=== PATIENT | male | born 1945 | race Caucasian/White ===

== ENCOUNTER 2023-10-10 07:45 | Inpatient (IN) ==
[2023-10-10] MEDS ORDERED: IOPAMIDOL 100 ML BOTTLE IV ONE (07:46)
[2023-10-10 08:45] LABS: Basophils # (Auto) 0.02 K/mcL (0.00-0.30); Basophils % (Auto) 0.2 % (0.0-2.0); Eosinophils # (Auto) 0.05 K/mcL (0.00-0.70); Eosinophils % (Auto) 0.6 % (0.0-7.0); Hemoglobin 11.4 g/dL (13.7-17.5); Lymphocytes # (Auto) 0.96 K/mcL (1.50-4.80); Lymphocytes % (Auto) 11.4 % (15.5-49.0); Mean Cell Volume 84.5 fL (80.0-100.0); Mean Corpuscular HGB Conc 32.6 g/dL (31.0-36.0); Mean Platelet Volume 8.7 fL (8.8-12.5); Monocytes # (Auto) 0.95 K/mcL (0.10-0.90); Monocytes % (Auto) 11.3 % (1.0-12.0); Neutrophils % (Auto) 75.9 % (38.0-78.0); Platelet Count 334 K/mcL (140-440); RBC 4.14 M/mcL (4.63-6.08); WBC 8.4 K/mcL (4.5-11.0)
[2023-10-10 08:52] LABS: POC Calcium, Ionized 1.31 (1.16-1.32); POC Creatinine 0.9 (0.6-1.2); POC Potassium 4.3 (3.3-5.1)
[2023-10-10 08:59] LABS: ALT/SGPT 15 U/L (<40); AST/SGOT 77 U/L (<40); Albumin 3.4 gm/dL (3.2-5.2); Albumin/Globulin Ratio 0.8 (1.0-2.3); Alkaline Phosphatase 68 U/L (39-117); Bilirubin,Total 0.4 mg/dL (0.1-1.0); Blood Urea Nitrogen 23 mg/dL (8-23); Calcium 9.9 mg/dL (8.6-10.4); Carbon Dioxide 27 mmol/L (22-30); Chloride 96 mmol/L (96-108); Globulin 4.5 gm/dL (2.2-3.7); Glomerular Filtration Rate 82; Glucose 138 mg/dL (70-105)
[2023-10-10] MEDS ORDERED: morphine 4 MG/ML VIAL IV ONE ×3 (10:11→14:06)
[2023-10-10] MEDS ORDERED: 0.9 % SODIUM CHLORIDE 500 ML IV ONE (11:16)
[2023-10-10] MEDS ORDERED: ALBUTEROL SULFATE 60 PUFF INHALER INH PRN (11:20)
[2023-10-10] MEDS ORDERED: CYCLOBENZAPRINE 10 MG TABLET PO PRN (11:33)
[2023-10-10] MEDS ORDERED: IPRATROPIUM/ALBUTEROL 3 ML AMPUL.NEB NEB PRN (14:32)
[2023-10-10] MEDS ORDERED: oxyCODONE IR 5 MG TABLET PO PRN (14:32)
[2023-10-10] MEDS ORDERED: DEXTROSE 31 GM ORAL.SUSP PO PRN (14:32)
[2023-10-10] MEDS ORDERED: ONDANSETRON 4 MG/2 ML VIAL IV PRN (14:32)
[2023-10-10] MEDS ORDERED: DEXTROSE 50% 50 ML VIAL IV PRN (14:32)
[2023-10-10] MEDS ORDERED: morphine 4 MG/ML VIAL IV PRN (14:32)
[2023-10-10] MEDS ORDERED: hydrALAZINE 20 MG/ML VIAL IV PRN (14:32)
[2023-10-10] MEDS ORDERED: DEXTROSE 5%-LR 1,000 ML IV SCH (14:32)
[2023-10-10] MEDS ORDERED: ENALAPRILAT 1.25 MG/ML VIAL IV PRN (14:32)
[2023-10-10] MEDS ORDERED: traZODone HCL 50 MG TABLET PO PRN (14:32)
[2023-10-10] MEDS: INSULIN LISPRO 1 UNIT/0.01 ML UNIT SQ SCH ×3 (15:15→23:51)
[2023-10-10] MEDS: 0.9 % SODIUM CHLORIDE 10 ML SYRINGE IV SCH ×2 (15:17→21:10)
[2023-10-10 15:58] LABS: Amylase 183 U/L (28-100); INR 1.1 (0.9-1.1); Partial Thromboplastin Time 27.4 sec (20.0-37.0); Prothrombin Time 14.9 sec (11.9-14.5); Uric Acid 11.5 mg/dL (2.5-8.0)
[2023-10-10 17:49] LABS: Amylase,Pleural Fluid 59 U/L; Glucose,Pleural Fluid 125 mg/dL
[2023-10-10 17:50] LABS: LDH,Pleural Fluid 911 U/L (<122)
[2023-10-10] MEDS: ACETAMINOPHEN 325 MG TABLET PO PRN (19:00)
[2023-10-10 19:22] LABS: Appearance,Pleural Fluid Hazy; Color,Pleural Fluid Yellow; Lymphocytes,Pleural Fluid 27 %; Mesothelial,Pleural Fluid 6 %; Monocytes,Pleural Fluid 9 %; Neutrophils,Pleural Fluid 1 %; Nucleated Cells,Pleural Fld 864 /cumm; Other Cells,Pleural Cells 57 %; RBC,Pleural Fluid <50,000 /cumm
[2023-10-10 20:04] LABS: Lactate Dehydrogenase 1730 U/L (135-225)
[2023-10-10] MEDS ORDERED: ATORVASTATIN 40 MG TABLET PO SCH (21:00)
[2023-10-10] MEDS ORDERED: DOXYCYCLINE HYCLATE 100 MG TABLET.ORL PO SCH (21:00)
[2023-10-10] MEDS: traZODone HCL 50 MG TABLET PO SCH (21:10)
[2023-10-10] MEDS: GABAPENTIN 300 MG CAPSULE PO SCH (21:10)
[2023-10-10] MEDS: METOPROLOL TARTRATE 50 MG TABLET PO SCH (21:10)
[2023-10-10] MEDS: SENNOSIDES 1 TABLET PO SCH (21:10)
[2023-10-10] MEDS: amLODIPine 5 MG TABLET PO SCH (21:10)
[2023-10-10] MEDS: DOCUSATE SODIUM 100 MG CAPSULE PO SCH (21:10)
[2023-10-11] MEDS: ACETAMINOPHEN 325 MG TABLET PO PRN (02:26)
[2023-10-11] MEDS: 0.9 % SODIUM CHLORIDE 10 ML SYRINGE IV SCH ×3 (05:31→20:54)
[2023-10-11] MEDS: INSULIN LISPRO 1 UNIT/0.01 ML UNIT SQ SCH ×4 (05:33→23:31)
[2023-10-11 06:48] LABS: Basophils # (Auto) 0.02 K/mcL (0.00-0.30); Basophils % (Auto) 0.3 % (0.0-2.0); Eosinophils # (Auto) 0.05 K/mcL (0.00-0.70); Eosinophils % (Auto) 0.8 % (0.0-7.0); Hematocrit 33.3 % (40.1-51.0); Hemoglobin 10.9 g/dL (13.7-17.5); Lymphocytes # (Auto) 0.72 K/mcL (1.50-4.80); Lymphocytes % (Auto) 11.3 % (15.5-49.0); Mean Cell Volume 84.7 fL (80.0-100.0); Mean Corpuscular HGB Conc 32.7 g/dL (31.0-36.0); Mean Platelet Volume 8.9 fL (8.8-12.5); Monocytes # (Auto) 0.79 K/mcL (0.10-0.90); Monocytes % (Auto) 12.4 % (1.0-12.0); Neutrophils % (Auto) 74.7 % (38.0-78.0); Platelet Count 297 K/mcL (140-440); RBC 3.93 M/mcL (4.63-6.08); WBC 6.4 K/mcL (4.5-11.0)
[2023-10-11] MEDS ORDERED: POTASSIUM CHLORIDE 10 MEQ TABLET PO SCH (08:00)
[2023-10-11 08:28] LABS: ALT/SGPT 12 U/L (<40); AST/SGOT 67 U/L (<40); Albumin 3.2 gm/dL (3.2-5.2); Albumin/Globulin Ratio 0.8 (1.0-2.3); Alkaline Phosphatase 62 U/L (39-117); Bilirubin,Direct < 0.2 mg/dL (0-0.3); Bilirubin,Total 0.4 mg/dL (0.1-1.0); Blood Urea Nitrogen 20 mg/dL (8-23); Calcium 8.8 mg/dL (8.6-10.4); Carbon Dioxide 24 mmol/L (22-30); Chloride 99 mmol/L (96-108); Glomerular Filtration Rate 91; Glucose 109 mg/dL (70-105); Lactate Dehydrogenase 1552 U/L (135-225); Phosphorous 4.4 mg/dL (2.5-4.5); Triglycerides 69 mg/dL (<150); Uric Acid 11.6 mg/dL (2.5-8.0)
[2023-10-11] MEDS ORDERED: FISH OIL 1,000 MG CAPSULE PO SCH (09:00)
[2023-10-11] MEDS ORDERED: ASPIRIN 81 MG TAB.CHEW PO SCH (09:00)
[2023-10-11] MEDS ORDERED: VITAMIN D3 25 MCG TABLET PO SCH (09:00)
[2023-10-11] MEDS ORDERED: 0.9 % SODIUM CHLORIDE 1,000 ML IV SCH (09:00)
[2023-10-11] MEDS ORDERED: MULTIVIT,THER IRON,CA,FA & MIN 1 TABLET PO SCH (09:00)
[2023-10-11] MEDS ORDERED: fentaNYL 100 MCG/2 ML VIAL IV ONE (09:47)
[2023-10-11] MEDS ORDERED: MIDAZOLAM 2 MG/2 ML VIAL IV ONE (09:47)
[2023-10-11 10:12] LABS: Hemoglobin A1C 6.2 % Hgb (4.0-6.0)
[2023-10-11] MEDS ORDERED: IOPAMIDOL 100 ML BOTTLE IV ONE (10:28)
[2023-10-11] MEDS ORDERED: LIDOCAINE 1% 10 ML VIAL SQ ONE (11:13)
[2023-10-11] MEDS: LOSARTAN 50 MG TABLET PO SCH (11:34)
[2023-10-11] MEDS: METOPROLOL TARTRATE 50 MG TABLET PO SCH ×2 (11:34→20:55)
[2023-10-11] MEDS: amLODIPine 5 MG TABLET PO SCH ×2 (11:34→20:55)
[2023-10-11] MEDS: DOCUSATE SODIUM 100 MG CAPSULE PO SCH ×2 (11:34→20:54)
[2023-10-11] MEDS ORDERED: POLYETHYLENE GLYCOL 3350 17 GM PACKET PO ONE (11:37)
[2023-10-11] MEDS ORDERED: SENNOSIDES 1 TABLET PO ONE (11:37)
[2023-10-11] MEDS ORDERED: POLYETHYLENE GLYCOL 3350 17 GM PACKET PO PRN (11:37)
[2023-10-11] MEDS ORDERED: SENNOSIDES 1 TABLET PO PRN (11:37)
[2023-10-11] MEDS ORDERED: FUROSEMIDE 40 MG/4 ML VIAL IV ONE ×2 (11:40→13:57)
[2023-10-11] MEDS: ENOXAPARIN 40 MG/0.4 ML SYRINGE SQ SCH (14:05)
[2023-10-11] MEDS: SENNOSIDES 1 TABLET PO SCH (20:55)
[2023-10-11] MEDS: GABAPENTIN 300 MG CAPSULE PO SCH (20:55)
[2023-10-11] MEDS: traZODone HCL 50 MG TABLET PO SCH (20:55)
[2023-10-12] MEDS: 0.9 % SODIUM CHLORIDE 10 ML SYRINGE IV SCH (05:07)
[2023-10-12] MEDS: INSULIN LISPRO 1 UNIT/0.01 ML UNIT SQ SCH ×2 (05:11→12:14)
[2023-10-12] MEDS: LOSARTAN 50 MG TABLET PO SCH (08:33)
[2023-10-12] MEDS: amLODIPine 5 MG TABLET PO SCH (08:33)
[2023-10-12] MEDS: METOPROLOL TARTRATE 50 MG TABLET PO SCH (08:34)
[2023-10-12] MEDS: DOCUSATE SODIUM 100 MG CAPSULE PO SCH (08:34)
[2023-10-12] MEDS: ENOXAPARIN 40 MG/0.4 ML SYRINGE SQ SCH (08:34)
== END 2023-10-12 13:05 | disposition home or self-care (01) | DRG 374 ==
LOC: ED 07:45 → MEDSUR 14:21
PROVIDERS: ADMIT Internal Medicine; ATTEND Internal Medicine

== ENCOUNTER 2023-11-01 14:12 | Inpatient (IN) ==
[2023-11-01 15:23] LABS: Basophils # (Auto) 0 K/mcL (0.00-0.30); Basophils % (Auto) 0 % (0.0-2.0); Eosinophils # (Auto) 0.01 K/mcL (0.00-0.70); Eosinophils % (Auto) 0.1 % (0.0-7.0); Hematocrit 27.5 % (40.1-51.0); Hemoglobin 8.8 g/dL (13.7-17.5); Lymphocytes # (Auto) 0.11 K/mcL (1.50-4.80); Lymphocytes % (Auto) 1.5 % (15.5-49.0); Mean Cell Volume 86.2 fL (80.0-100.0); Mean Platelet Volume 9.5 fL (8.8-12.5); Monocytes # (Auto) 0.02 K/mcL (0.10-0.90); Monocytes % (Auto) 0.3 % (1.0-12.0); Neutrophils % (Auto) 86.9 % (38.0-78.0); Platelet Count 120 K/mcL (140-440); RBC 3.19 M/mcL (4.63-6.08); Red Cell Distribution Width 15.7 % (11.5-14.5); WBC 7.2 K/mcL (4.5-11.0)
[2023-11-01] MEDS: IPRATROPIUM/ALBUTEROL 3 ML AMPUL.NEB NEB ONE (15:26)
[2023-11-01 15:51] LABS: ALT/SGPT 20 U/L (<40); AST/SGOT 34 U/L (<40); Albumin 2.5 gm/dL (3.2-5.2); Albumin/Globulin Ratio 0.8 (1.0-2.3); Alkaline Phosphatase 60 U/L (39-117); Bilirubin,Total 0.5 mg/dL (0.1-1.0); Blood Urea Nitrogen 12 mg/dL (8-23); Calcium 8.2 mg/dL (8.6-10.4); Carbon Dioxide 29 mmol/L (22-30); Chloride 95 mmol/L (96-108); Glomerular Filtration Rate 96; Glucose 280 mg/dL (70-105)
[2023-11-01] MEDS: AZITHROMYCIN 500 MG in DEXTROSE 5% IN WATER 250 ML IV ONE (17:00)
[2023-11-01] MEDS: cefTRIAXone 1 GM VIAL IV ONE (17:00)
[2023-11-01] MEDS: LACTATED RINGERS 1,000 ML IV ONE (17:29)
[2023-11-01] MEDS ORDERED: DEXTROSE 50% 50 ML VIAL IV PRN (21:03)
[2023-11-01] MEDS ORDERED: DEXTROSE 31 GM ORAL.SUSP PO PRN (21:03)
[2023-11-01] MEDS: ATORVASTATIN 40 MG TABLET PO SCH (21:57)
[2023-11-01] MEDS: DOCUSATE SODIUM 100 MG CAPSULE PO SCH (21:57)
[2023-11-01] MEDS: GABAPENTIN 300 MG CAPSULE PO SCH (21:58)
[2023-11-01] MEDS: SENNOSIDES 1 TABLET PO SCH (21:58)
[2023-11-01] MEDS: METOPROLOL TARTRATE 50 MG TABLET PO SCH (22:04)
[2023-11-01] MEDS: 0.9 % SODIUM CHLORIDE 10 ML SYRINGE IV SCH (22:11)
[2023-11-01] MEDS: INSULIN LISPRO 1 UNIT/0.01 ML UNIT SQ SCH (22:11)
[2023-11-02 06:34] LABS: Blood Urea Nitrogen 12 mg/dL (8-23); Calcium 8.4 mg/dL (8.6-10.4); Carbon Dioxide 31 mmol/L (22-30); Chloride 96 mmol/L (96-108); Glomerular Filtration Rate 96; Glucose 184 mg/dL (70-105)
[2023-11-02 06:55] LABS: Basophils # (Auto) 0 K/mcL (0.00-0.30); Basophils % (Auto) 0 % (0.0-2.0); Eosinophils # (Auto) 0.01 K/mcL (0.00-0.70); Eosinophils % (Auto) 0.5 % (0.0-7.0); Hematocrit 27.4 % (40.1-51.0); Hemoglobin 8.6 g/dL (13.7-17.5); Lymphocytes # (Auto) 0.11 K/mcL (1.50-4.80); Mean Cell Volume 87.5 fL (80.0-100.0); Mean Corpuscular HGB Conc 31.4 g/dL (31.0-36.0); Mean Platelet Volume 9.6 fL (8.8-12.5); Monocytes # (Auto) 0.02 K/mcL (0.10-0.90); Monocytes % (Auto) 1.1 % (1.0-12.0); Neutrophils % (Auto) 79.3 % (38.0-78.0); Platelet Count 95 K/mcL (140-440); RBC 3.13 M/mcL (4.63-6.08); Red Cell Distribution Width 15.6 % (11.5-14.5); WBC 1.8 K/mcL (4.5-11.0)
[2023-11-02] MEDS: SPIRONOLACTONE 25 MG TABLET PO SCH (08:10)
[2023-11-02] MEDS: SULFAMETHOXAZOLE/TRIMETHOPRIM 1 TABLET PO SCH (08:11)
[2023-11-02] MEDS: ALLOPURINOL 300 MG TABLET PO SCH (08:11)
[2023-11-02] MEDS: amLODIPine 5 MG TABLET PO SCH (08:11)
[2023-11-02] MEDS: cefTRIAXone 2 GM in DEXTROSE 5% IN WATER 50 ML IV SCH (10:18)
[2023-11-02] MEDS: valACYclovir 500 MG TABLET PO SCH (10:18)
[2023-11-02] MEDS: AZITHROMYCIN 500 MG in DEXTROSE 5% IN WATER 250 ML IV SCH (10:50)
[2023-11-02] MEDS: guaiFENesin 600 MG TAB.SR.12H PO PRN (15:47)
[2023-11-02 17:15] LABS: Appearance,Pleural Fluid Hazy; Color,Pleural Fluid Yellow; Lymphocytes,Pleural Fluid 89 %; Monocytes,Pleural Fluid 11 %; Neutrophils,Pleural Fluid 0 %; Nucleated Cells,Pleural Fld 103 /cumm; RBC,Pleural Fluid <50,000 /cumm
[2023-11-02] MEDS: APIXABAN 5 MG TABLET PO SCH (22:11)
[2023-11-03] MEDS: ALBUTEROL SULFATE 2.5 MG/3 ML NEBULIZER NEB PRN (00:11)
[2023-11-03 07:20] LABS: ALT/SGPT 56 U/L (<40); AST/SGOT 52 U/L (<40); Albumin 2.5 gm/dL (3.2-5.2); Albumin/Globulin Ratio 0.9 (1.0-2.3); Alkaline Phosphatase 63 U/L (39-117); Bilirubin,Direct 0.4 mg/dL (<0.3); Bilirubin,Total 0.7 mg/dL (0.1-1.0); Blood Urea Nitrogen 12 mg/dL (8-23); Carbon Dioxide 30 mmol/L (22-30); Chloride 96 mmol/L (96-108); Globulin 2.9 gm/dL (2.2-3.7); Glomerular Filtration Rate 96; Glucose 163 mg/dL (70-105); Lactate Dehydrogenase 498 U/L (135-225); Phosphorous 3.3 mg/dL (2.5-4.5); Triglycerides 67 mg/dL (<150)
[2023-11-03 08:11] LABS: Basophils # (Auto) 0 K/mcL (0.00-0.30); Basophils % (Auto) 0 % (0.0-2.0); Eosinophils # (Auto) 0 K/mcL (0.00-0.70); Eosinophils % (Auto) 0 % (0.0-7.0); Hematocrit 25.5 % (40.1-51.0); Hemoglobin 8.2 g/dL (13.7-17.5); Lymphocytes # (Auto) 0.06 K/mcL (1.50-4.80); Lymphocytes % (Auto) 42.9 % (15.5-49.0); Mean Cell Volume 83.9 fL (80.0-100.0); Mean Corpuscular HGB Conc 32.2 g/dL (31.0-36.0); Mean Platelet Volume 9.7 fL (8.8-12.5); Monocytes # (Auto) 0.01 K/mcL (0.10-0.90); Monocytes % (Auto) 7.1 % (1.0-12.0); Neutrophils % (Auto) 42.9 % (38.0-78.0); Platelet Count 60 K/mcL (140-440); RBC 3.04 M/mcL (4.63-6.08); Red Cell Distribution Width 15.6 % (11.5-14.5)
[2023-11-03] MEDS: POTASSIUM CHLORIDE 40 MEQ in DEXTROSE 5% IN WATER 500 ML IV SCH (09:18)
[2023-11-03 13:35] LABS: WBC 0.1 K/mcL (4.5-11.0)
[2023-11-03] MEDS: FLUCONAZOLE 100 MG TABLET PO SCH (16:49)
[2023-11-04 06:31] LABS: ALT/SGPT 80 U/L (<40); AST/SGOT 75 U/L (<40); Albumin 2.5 gm/dL (3.2-5.2); Albumin/Globulin Ratio 0.8 (1.0-2.3); Alkaline Phosphatase 72 U/L (39-117); Bilirubin,Direct 0.4 mg/dL (<0.3); Bilirubin,Total 0.6 mg/dL (0.1-1.0); Blood Urea Nitrogen 12 mg/dL (8-23); Calcium 7.9 mg/dL (8.6-10.4); Carbon Dioxide 28 mmol/L (22-30); Chloride 94 mmol/L (96-108); Globulin 3.1 gm/dL (2.2-3.7); Glomerular Filtration Rate 96; Glucose 140 mg/dL (70-105); Lactate Dehydrogenase 443 U/L (135-225); Phosphorous 2.8 mg/dL (2.5-4.5); Triglycerides 65 mg/dL (<150); Uric Acid 2.9 mg/dL (2.5-8.0)
[2023-11-04 08:23] LABS: Basophils # (Auto) 0.01 K/mcL (0.00-0.30); Basophils % (Auto) 5.9 % (0.0-2.0); Eosinophils # (Auto) 0 K/mcL (0.00-0.70); Eosinophils % (Auto) 0 % (0.0-7.0); Hematocrit 25.6 % (40.1-51.0); Hemoglobin 8.4 g/dL (13.7-17.5); Lymphocytes # (Auto) 0.11 K/mcL (1.50-4.80); Lymphocytes % (Auto) 64.7 % (15.5-49.0); Mean Cell Volume 82.6 fL (80.0-100.0); Mean Corpuscular HGB Conc 32.8 g/dL (31.0-36.0); Mean Platelet Volume 10.3 fL (8.8-12.5); Monocytes # (Auto) 0.03 K/mcL (0.10-0.90); Monocytes % (Auto) 17.6 % (1.0-12.0); Neutrophils % (Auto) 5.9 % (38.0-78.0); Platelet Count 40 K/mcL (140-440); Red Cell Distribution Width 15.3 % (11.5-14.5); WBC 0.2 K/mcL (4.5-11.0)
[2023-11-04] MEDS: POTASSIUM CHLORIDE 20 MEQ TABLET PO SCH (09:26)
[2023-11-04] MEDS: FLUCONAZOLE 100 MG TABLET PO SCH (09:56)
[2023-11-04] MEDS: LORazepam 0.5 MG TABLET PO PRN (11:27)
[2023-11-04] MEDS: ACETAMINOPHEN 325 MG TABLET PO PRN (20:30)
[2023-11-05] MEDS: traZODone HCL 50 MG TABLET PO PRN (00:49)
[2023-11-05 06:36] LABS: ALT/SGPT 75 U/L (<40); AST/SGOT 73 U/L (<40); Albumin 2.7 gm/dL (3.2-5.2); Albumin/Globulin Ratio 0.9 (1.0-2.3); Alkaline Phosphatase 71 U/L (39-117); Bilirubin,Direct 0.4 mg/dL (<0.3); Bilirubin,Total 0.6 mg/dL (0.1-1.0); Blood Urea Nitrogen 16 mg/dL (8-23); Calcium 7.9 mg/dL (8.6-10.4); Carbon Dioxide 27 mmol/L (22-30); Chloride 96 mmol/L (96-108); Globulin 3.1 gm/dL (2.2-3.7); Glomerular Filtration Rate 90; Glucose 144 mg/dL (70-105); Lactate Dehydrogenase 440 U/L (135-225); Phosphorous 3.3 mg/dL (2.5-4.5); Triglycerides 78 mg/dL (<150); Uric Acid 3.3 mg/dL (2.5-8.0)
[2023-11-05 09:20] LABS: Basophils # (Auto) 0 K/mcL (0.00-0.30); Basophils % (Auto) 0 % (0.0-2.0); Eosinophils # (Auto) 0 K/mcL (0.00-0.70); Eosinophils % (Auto) 0 % (0.0-7.0); Hematocrit 25.4 % (40.1-51.0); Hemoglobin 8.2 g/dL (13.7-17.5); Lymphocytes # (Auto) 0.07 K/mcL (1.50-4.80); Lymphocytes % (Auto) 30.4 % (15.5-49.0); Mean Cell Volume 84.4 fL (80.0-100.0); Mean Corpuscular HGB Conc 32.3 g/dL (31.0-36.0); Mean Platelet Volume 10.5 fL (8.8-12.5); Monocytes # (Auto) 0.07 K/mcL (0.10-0.90); Monocytes % (Auto) 30.4 % (1.0-12.0); Neutrophils % (Auto) 34.9 % (38.0-78.0); Platelet Count 46 K/mcL (140-440); RBC 3.01 M/mcL (4.63-6.08); Red Cell Distribution Width 15.3 % (11.5-14.5); WBC 0.2 K/mcL (4.5-11.0)
[2023-11-05] MEDS: POTASSIUM CHLORIDE 20 MEQ in DEXTROSE 5% IN WATER 250 ML IV SCH (09:42)
[2023-11-05] MEDS: FUROSEMIDE 40 MG/4 ML VIAL IV SCH ×2 (09:42→18:45)
[2023-11-05 10:06] LABS: Appearance,Urine Clear (Clear); Bacteria,Urine 0 /hpf (0); Bilirubin,Urine Negative (Negative); Color,Urine Yellow; Culture Indicated,Urine No; Glucose,Urine (UA) Negative (Negative); Ketones,Urine Negative (Negative); Leukocyte Esterase,Urine Negative /uL (Negative); Nitrate,Urine Negative (Negative); Protein,Urine 30 mg/dL (Negative); Specific Gravity,Urine >= 1.030 (1.000-1.035); Urine Amorphous Crystals Few /hpf; Urine Blood Negative ery/mcL (Negative); Urine RBC 0 /hpf (0-3); Urine Squamous Epithelial Cell 0 /hpf (0-4); Urine WBC 0 /hpf (0-4); Urobilinogen,Urine Normal
[2023-11-05] MEDS ORDERED: VANCOMYCIN PER PHARMACY IV SCH (10:23)
[2023-11-05] MEDS: CEFEPIME 2 GM VIAL IV SCH (12:06)
[2023-11-05] MEDS: ACETAMINOPHEN 650 MG/65 ML BAG IV PRN (12:06)
[2023-11-05] MEDS: VANCOMYCIN 1,250 MG in 0.9 % SODIUM CHLORIDE 500 ML IV SCH (12:46)
[2023-11-05] MEDS: POTASSIUM CHLORIDE 20 MEQ TABLET PO SCH (17:49)
[2023-11-06 06:48] LABS: ALT/SGPT 104 U/L (<40); AST/SGOT 183 U/L (<40); Albumin 2.7 gm/dL (3.2-5.2); Albumin/Globulin Ratio 0.8 (1.0-2.3); Alkaline Phosphatase 77 U/L (39-117); Bilirubin,Total 0.6 mg/dL (0.1-1.0); Blood Urea Nitrogen 27 mg/dL (8-23); Carbon Dioxide 23 mmol/L (22-30); Chloride 96 mmol/L (96-108); Globulin 3.3 gm/dL (2.2-3.7); Glomerular Filtration Rate 48; Glucose 142 mg/dL (70-105)
[2023-11-06 07:15] LABS: Basophils # (Auto) 0.01 K/mcL (0.00-0.30); Basophils % (Auto) 0.3 % (0.0-2.0); Eosinophils # (Auto) 0 K/mcL (0.00-0.70); Eosinophils % (Auto) 0 % (0.0-7.0); Hematocrit 28.4 % (40.1-51.0); Hemoglobin 9.1 g/dL (13.7-17.5); Lymphocytes # (Auto) 0.24 K/mcL (1.50-4.80); Mean Cell Volume 84.5 fL (80.0-100.0); Mean Platelet Volume 10.6 fL (8.8-12.5); Monocytes # (Auto) 0.21 K/mcL (0.10-0.90); Neutrophils % (Auto) 83.4 % (38.0-78.0); Platelet Count 97 K/mcL (140-440); RBC 3.36 M/mcL (4.63-6.08); Red Cell Distribution Width 15.5 % (11.5-14.5)
[2023-11-06] MEDS: FUROSEMIDE 20 MG TABLET PO SCH (07:15)
[2023-11-06] MEDS: POTASSIUM CHLORIDE 10 MEQ in DEXTROSE 5% IN WATER 250 ML IV SCH (09:28)
[2023-11-06] MEDS: 0.9 % SODIUM CHLORIDE 1,000 ML IV ONE (11:29)
[2023-11-06] MEDS ORDERED: IOPAMIDOL 100 ML BOTTLE IV ONE (13:00)
[2023-11-06] MEDS: IPRATROPIUM/ALBUTEROL 3 ML AMPUL.NEB NEB SCH (13:05)
[2023-11-06] MEDS: ONDANSETRON 4 MG/2 ML VIAL IV PRN (13:16)
[2023-11-06] MEDS ORDERED: HALOPERIDOL LACTATE 5 MG/ML VIAL IV PRN (13:33)
[2023-11-06] MEDS: LORazepam 2 MG/ML VIAL IV PRN (13:46)
[2023-11-06] MEDS: POTASSIUM CHLORIDE 20 MEQ in DEXTROSE 5% IN WATER 250 ML IV SCH (16:21)
[2023-11-06] MEDS: LACTOPEROXI/GLUC OXID/POT THIO 1 EACH GEL..EA. TOPICAL PRN (16:48)
[2023-11-06] MEDS: DEXTROSE 5%-LR 1,000 ML IV SCH (16:53)
[2023-11-06] MEDS: metroNIDAZOLE 500 MG/100 ML BAG IV SCH (17:04)
[2023-11-06] MEDS: INSULIN LISPRO 1 UNIT/0.01 ML UNIT SQ SCH (17:22)
[2023-11-06] MEDS ORDERED: METOPROLOL TARTRATE 5 MG/5 ML VIAL IV PRN (20:28)
[2023-11-07 06:22] LABS: Basophils # (Auto) 0.02 K/mcL (0.00-0.30); Basophils % (Auto) 0.3 % (0.0-2.0); Eosinophils # (Auto) 0 K/mcL (0.00-0.70); Eosinophils % (Auto) 0 % (0.0-7.0); Hematocrit 24.2 % (40.1-51.0); Hemoglobin 7.8 g/dL (13.7-17.5); Lymphocytes # (Auto) 0.26 K/mcL (1.50-4.80); Mean Cell Volume 84.6 fL (80.0-100.0); Mean Corpuscular HGB Conc 32.2 g/dL (31.0-36.0); Mean Platelet Volume 11.7 fL (8.8-12.5); Monocytes # (Auto) 0.37 K/mcL (0.10-0.90); Monocytes % (Auto) 5.7 % (1.0-12.0); Neutrophils % (Auto) 84.4 % (38.0-78.0); Platelet Count 115 K/mcL (140-440); RBC 2.86 M/mcL (4.63-6.08); Red Cell Distribution Width 15.6 % (11.5-14.5); WBC 6.5 K/mcL (4.5-11.0)
[2023-11-07 06:57] LABS: ALT/SGPT 113 U/L (<40); AST/SGOT 240 U/L (<40); Albumin 2.3 gm/dL (3.2-5.2); Albumin/Globulin Ratio 0.9 (1.0-2.3); Alkaline Phosphatase 75 U/L (39-117); Bilirubin,Total 0.3 mg/dL (0.1-1.0); Blood Urea Nitrogen 30 mg/dL (8-23); Calcium 7.7 mg/dL (8.6-10.4); Carbon Dioxide 26 mmol/L (22-30); Chloride 103 mmol/L (96-108); Globulin 2.7 gm/dL (2.2-3.7); Glomerular Filtration Rate 58; Glucose 160 mg/dL (70-105)
[2023-11-07] MEDS: POTASSIUM CHLORIDE 40 MEQ in DEXTROSE 5% IN WATER 500 ML IV ONE ×2 (12:10→18:01)
[2023-11-07] MEDS: predniSONE 10 MG TABLET PO SCH (12:10)
[2023-11-07] MEDS: DEXTROSE 5%-LR 1,000 ML IV SCH (17:56)
[2023-11-08 06:06] LABS: Basophils # (Auto) 0.01 K/mcL (0.00-0.30); Basophils % (Auto) 0.1 % (0.0-2.0); Eosinophils # (Auto) 0 K/mcL (0.00-0.70); Eosinophils % (Auto) 0 % (0.0-7.0); Hematocrit 23.7 % (40.1-51.0); Hemoglobin 7.8 g/dL (13.7-17.5); Lymphocytes # (Auto) 0.48 K/mcL (1.50-4.80); Lymphocytes % (Auto) 4.4 % (15.5-49.0); Mean Cell Volume 82.3 fL (80.0-100.0); Mean Corpuscular HGB Conc 32.9 g/dL (31.0-36.0); Mean Platelet Volume 11.2 fL (8.8-12.5); Monocytes # (Auto) 0.57 K/mcL (0.10-0.90); Monocytes % (Auto) 5.2 % (1.0-12.0); Neutrophils % (Auto) 81.4 % (38.0-78.0); Platelet Count 137 K/mcL (140-440); RBC 2.88 M/mcL (4.63-6.08); Red Cell Distribution Width 15.8 % (11.5-14.5); WBC 10.9 K/mcL (4.5-11.0)
[2023-11-08 06:59] LABS: ALT/SGPT 118 U/L (<40); AST/SGOT 236 U/L (<40); Albumin 2.4 gm/dL (3.2-5.2); Albumin/Globulin Ratio 0.9 (1.0-2.3); Alkaline Phosphatase 96 U/L (39-117); Bilirubin,Total 0.3 mg/dL (0.1-1.0); Blood Urea Nitrogen 24 mg/dL (8-23); Carbon Dioxide 29 mmol/L (22-30); Chloride 102 mmol/L (96-108); Globulin 2.6 gm/dL (2.2-3.7); Glomerular Filtration Rate 86; Glucose 181 mg/dL (70-105)
[2023-11-08] MEDS ORDERED: ENOXAPARIN 40 MG/0.4 ML SYRINGE SQ SCH (09:00)
[2023-11-08] MEDS: PANTOPRAZOLE 40 MG VIAL IV SCH (09:11)
[2023-11-08] MEDS: IPRATROPIUM/ALBUTEROL 3 ML AMPUL.NEB NEB PRN (16:00)
[2023-11-08] MEDS: ALBUMIN HUMAN 12.5 GM/50 ML VIAL IV SCH (17:04)
[2023-11-08] MEDS: FUROSEMIDE 40 MG/4 ML VIAL IV SCH (17:04)
[2023-11-09 06:09] LABS: Basophils # (Auto) 0.01 K/mcL (0.00-0.30); Basophils % (Auto) 0.1 % (0.0-2.0); Eosinophils # (Auto) 0 K/mcL (0.00-0.70); Eosinophils % (Auto) 0 % (0.0-7.0); Hemoglobin 8.1 g/dL (13.7-17.5); Lymphocytes # (Auto) 1.24 K/mcL (1.50-4.80); Mean Cell Volume 83.6 fL (80.0-100.0); Mean Corpuscular HGB Conc 32.4 g/dL (31.0-36.0); Mean Platelet Volume 11.7 fL (8.8-12.5); Monocytes # (Auto) 0.96 K/mcL (0.10-0.90); Monocytes % (Auto) 5.5 % (1.0-12.0); Neutrophils % (Auto) 74.9 % (38.0-78.0); Platelet Count 193 K/mcL (140-440); RBC 2.99 M/mcL (4.63-6.08); Red Cell Distribution Width 16.2 % (11.5-14.5); WBC 17.6 K/mcL (4.5-11.0)
[2023-11-09 07:23] LABS: ALT/SGPT 100 U/L (<40); AST/SGOT 181 U/L (<40); Albumin 2.6 gm/dL (3.2-5.2); Alkaline Phosphatase 130 U/L (39-117); Bilirubin,Direct 0.2 mg/dL (<0.3); Bilirubin,Total 0.5 mg/dL (0.1-1.0); Blood Urea Nitrogen 23 mg/dL (8-23); Carbon Dioxide 29 mmol/L (22-30); Chloride 103 mmol/L (96-108); Globulin 2.7 gm/dL (2.2-3.7); Glomerular Filtration Rate 86; Glucose 134 mg/dL (70-105); Lactate Dehydrogenase 978 U/L (135-225); Phosphorous 1.4 mg/dL (2.5-4.5); Triglycerides 136 mg/dL (<150)
[2023-11-09 08:12] LABS: INR 2.1 (0.9-1.1); Prothrombin Time 24.6 sec (11.9-14.5)
[2023-11-09] MEDS: ALBUMIN HUMAN 12.5 GM/50 ML VIAL IV ONE (09:14)
[2023-11-09] MEDS: FUROSEMIDE 40 MG/4 ML VIAL IV ONE (09:14)
[2023-11-09] MEDS: POTASSIUM PHOSPHATE 40 MEQ in DEXTROSE 5% IN WATER 500 ML IV ONE (09:14)
[2023-11-09] MEDS ORDERED: LACTOPEROXI/GLUC OXID/POT THIO 1 EACH GEL..EA. TOPICAL PRN (11:53)
[2023-11-09] MEDS ORDERED: ONDANSETRON 4 MG ODT TABLET SL PRN (11:53)
[2023-11-09] MEDS ORDERED: morphine 4 MG/ML VIAL NEB PRN (11:53)
[2023-11-09] MEDS ORDERED: PANTOPRAZOLE 40 MG VIAL IV SCH (17:00)
[2023-11-09] MEDS: LORazepam 2 MG/ML VIAL IV PRN (22:16)
[2023-11-10] MEDS: morphine 4 MG/ML VIAL IV PRN (09:07)
[2023-11-10 16:20] LABS: Cryptococcal Ag Screen NOT DETECTED; Source SERUM
[2023-11-11 17:05] LABS: Fungitell (1-3) Assay 31 pg/mL
== END 2023-11-13 00:36 | disposition expired | DRG 808 ==
LOC: ED 14:12 → MEDSUR 20:22 → ICU 11-05 16:32 → MEDSUR 11-09 18:15
PROVIDERS: ADMIT Internal Medicine; ATTEND Internal Medicine